=== PATIENT | female | born 1965 | race Caucasian/White ===

== ENCOUNTER 2019-04-03 20:55 | Emergency (ER) | payer BC ==
[~2019-04-03] VITALS: Ht 172.7 cm; Wt 86.2 kg
[2019-04-03 21:00] VITALS: BP_SYST 164
--- NOTE | 2019-04-03 21:40 | NUR ---
[facility] Side rails up. Report given to TERENCE LINO.
--- NOTE | 2019-04-03 21:40 | NUR ---
Patient complains of left sided headache that radiates down to neck and bilateral shoulders. Pt states she woke up feeling like this and took Excedrin around 230 pm, with no relief. Per pt, she has been nauseous all day but has not vomited. Pt denies trauma. No other injuries/complaints per patient or noted.
--- NOTE | 2019-04-03 21:56 | NUR ---
ER at bedside examining patient.
--- NOTE | 2019-04-03 22:10 | NUR ---
DR DEAN NOTIFIED PT BLOOD PRESSURE AND OK TO [facility].
--- NOTE | 2019-04-03 22:14 | NUR ---
Patient given written and verbal discharge instructions BY DR DEAN and verbalizes understanding. ER MD discussed with patient the results and treatment provided. Patient in stable condition. ID arm band removed. NO Rx of given. Patient educated on pain management and to follow up with PMD. Pain Scale 4/10. Opportunity for questions provided and answered. Medication side effect fact sheet provided.
[2019-04-03 22:17] VITALS: BP_SYST 160
== END 2019-04-03 22:14 | disposition home or self-care (01) ==
LOC: SED 20:55
DX: I10 Essential (primary) hypertension (principal)
CPT/HCPCS: 93005; 99283